=== PATIENT | female | born 1970 | race Caucasian/White ===

== ENCOUNTER 2016-12-08 00:21 | Emergency (ER) | payer SELFPAY ==
[~2016-12-08] VITALS: Ht 160 cm; Wt 86.2 kg
[2016-12-08 00:21] VITALS: BP 141/92
[~2016-12-08 00:21] MED LIST: ACET325T9 PO; MECL25TA3 PO; OLAN7.5T3 PO
[2016-12-08] MEDS ORDERED: HYDR-2758 PO (01:47)
[2016-12-08] MEDS ORDERED: CIPR10DR AS (01:47)
--- NOTE | 2016-12-08 01:48 | PHYS DOC ---
Past History Past Medical History: Depression, Diabetes, Migraines, Other Past Surgical History: Appendectomy, Cholecystectomy, , Hysterectomy, Other Smoking: Cigarettes Alcohol Use: None Drug Use: None Adult General Chief Complaint Chief Complaint: EARACHE/EAR PAIN [facility] HPI Patient is a pleasant 46-year-old female with a four-day history of ear pain on the right that began a few swelling. She describes as a dull ache this progressively got worse with no hearing loss she does have vertigo primarily from injury. Patient denies any fever, chills, drainage from the ear. She denies any sinusitis or sinus drainage denies any sore throat or other complaints. Pain is worse with direct pressure over the ear and pulling on the ear itself. She denies any bleeding from the ear or recent travel outside the country. She does not use any Q-tips. Check she thought her ear pain was secondary to cerumen impaction. Review of Systems Review of Systems Constitutional: Denies fever or chills [] Eyes: Denies change in visual acuity, redness, or eye pain [] HENT: Denies nasal congestion or sore throat [] her complaint is mainly right ear pain Respiratory: Denies cough or shortness of breath [] Cardiovascular: No additional information not addressed in HPI [] GI: Denies abdominal pain, nausea, vomiting, bloody stools or diarrhea [] : Denies dysuria or hematuria [] Musculoskeletal: Denies back pain or joint pain [] Integument: Denies rash or skin lesions [] Neurologic: Denies headache, focal weakness or sensory changes [] Endocrine: Denies polyuria or polydipsia [] Current Medications Current Medications Current Medications Medications (Trade) Dose Ordered Sig/Bebo Start Time Stop Time Status Last Admin Dose Admin Acetaminophen/ Hydrocodone Bitart (Lortab 5/325) 2 tab 1X ONCE 12/08/16 01:45 12/08/16 01:46 UNV Ciprofloxacin (Cipro) 500 mg 1X ONCE 12/08/16 01:45 12/08/16 01:46 UNV Allergies Allergies Allergies Coded Allergies Type Severity Reaction Last Updated Verified Erythromycin Base Allergy Intermediate 05/19/13 Yes promethazine Allergy Unknown Anxiety 01/15/14 Yes Physical Exam Physical Exam Constitutional: Well developed, well nourished, no acute distress, non-toxic appearance. [] HENT: Normocephalic, atraumatic, bilateral external ears normal, oropharynx moist, no oral exudates, nose normal. [] Patient has tenderness over the right tragus with some edema within the external ear canal. Patient has noted erythema with some debris not completely occluded. Persistent pain over pinna movement as well. Eyes: PERRLA, EOMI, conjunctiva normal, no discharge. [] Neck: Normal range of motion, no tenderness, supple, no stridor. [] Cardiovascular:Heart rate regular rhythm, no murmur [] Lungs & Thorax: Bilateral breath sounds clear to auscultation [] Skin: Warm, dry, no erythema, no rash. [] Neurologic: Alert and oriented X 3, normal motor function, normal sensory function, no focal deficits noted. [] Psychologic: Affect normal, judgement normal, mood normal. [] EKG EKG [] Radiology/Procedures Radiology/Procedures [] Course & Med Decision Making Course & Med Decision Making Pertinent Labs and Imaging studies reviewed. (See chart for details) patient presents with right ear pain on physical exam are consistent with otitis externa. Patient has no concomitant cellulitis or started is noted at this time. At this time patient will be given a course of antibiotics CiproHC otic with Lortab for pain control and ENT follow-up. Impression: Otitis externa right Discharge PCP follow-up tomorrow or Saturday put on Cipro HC otic and Lortab. [] Dragon Disclaimer Dragon Disclaimer This chart was dictated in whole or in part using Voice Recognition software in a busy, high-work load, and often noisy Emergency Department environment. It may contain unintended and wholly unrecognized errors or omissions. Departure Departure: Impression: Primary Impression: Otitis externa Disposition: HOME, SELF-CARE Condition: IMPROVED Referrals: PCP,NO (PCP) Patient Instructions: Otitis Externa Additional Instructions: This follow up PCP in 24 hours if symptoms continue. Please return for any fever greater 102.2 despite treatment or if you have increased symptoms facial swelling the occlusion of the ear or if you have questions or concerns. Scripts Hydrocodone Bit/Acetaminophen (HYDROCODONE-APAP 5-325 ) 1 Each Tablet 1 TAB PO PRN Q6HRS Y for PAIN for 5 Days, TAB 0 Refills Prov: MEREDITH WANG MD 7/8/17 Ciprofloxacin/Hydrocortisone (CIPRO HC OTIC SUSPENSION) 10 Ml Drops.susp 3 DROP BID, #10 ML Prov: MEREDITH WANG MD 12/08/16 MEREDITH WANG MD Dec 08, 2016 01:47
[2016-12-08] MEDS ORDERED: HYDROcodone/APAP 5/325MG 1 TAB TABLET PO ONE (02:00)
[2016-12-08] MEDS ORDERED: CIPROFLOXACIN HCL 500 MG TABLET PO ONE (02:00)
== END 2016-12-08 02:05 | disposition home or self-care (01) ==
LOC: ER 00:21
DX: H60.91 Unspecified otitis externa, right ear (principal); G43.909 Migraine, unspecified, not intractable, without status migrainosus; E11.9 Type 2 diabetes mellitus without complications; F17.210 Nicotine dependence, cigarettes, uncomplicated; Z88.1 Allergy status to other antibiotic agents; Z88.8 Allergy status to other drugs, medicaments and biological substances
CPT/HCPCS: 99283

== ENCOUNTER 2018-01-01 20:56 | Emergency (ER) | payer SELFPAY ==
[~2018-01-01] VITALS: Ht 160 cm; Wt 86.2 kg
[~2018-01-01 20:56] MED LIST changes: +CIPR10DR AS; +HYDR-2758 PO
[2018-01-01] MEDS ORDERED: HYDR-971 PO (22:14)
[2018-01-01] MEDS ORDERED: PENI500T PO (22:14)
--- NOTE | 2018-01-01 22:14 | PHYS DOC ---
Past History Past Medical History: Depression, Diabetes, Migraines, Other Past Surgical History: Appendectomy, Cholecystectomy, , Hysterectomy, Other Smoking: Cigarettes Alcohol Use: None Drug Use: None Adult General Chief Complaint Chief Complaint: DENTAL PROBLEM HPI HPI 47-year-old female patient with history of smoking states she had a large cavity in her left lower tooth for several months without any problem for the last 2 days she has had severe pain in her tooth and rated her pain 10 over 10. Patient denies shortness of breath, fever and chills, nausea and vomiting. Review of Systems Review of Systems Constitutional: Denies fever or chills [] Eyes: Denies change in visual acuity, redness, or eye pain [] HENT: Denies nasal congestion or sore throat [, reports dental pain] Respiratory: Denies cough or shortness of breath [] Cardiovascular: No additional information not addressed in HPI [] GI: Denies abdominal pain, nausea, vomiting, bloody stools or diarrhea [] : Denies dysuria or hematuria [] Musculoskeletal: Denies back pain or joint pain [] Integument: Denies rash or skin lesions [] Neurologic: Denies headache, focal weakness or sensory changes [] Endocrine: Denies polyuria or polydipsia [] All other systems were reviewed and found to be within normal limits, except as documented in this note. Current Medications Current Medications Current Medications Medications (Trade) Dose Ordered Sig/Bebo Start Time Stop Time Status Last Admin Dose Admin Penicillin V Potassium (Veetid) 1,000 mg 1X ONCE 01/01/18 22:15 01/01/18 22:16 UNV Allergies Allergies Allergies Coded Allergies Type Severity Reaction Last Updated Verified Erythromycin Base Allergy Intermediate 05/19/13 Yes promethazine Allergy Unknown Anxiety 01/15/14 Yes Physical Exam Physical Exam Constitutional: Well developed, well nourished, moderate distress, non-toxic appearance. [] HENT: Normocephalic, atraumatic, bilateral external ears normal, oropharynx moist, no oral exudates, nose normal, large dental cavity in tooth #31 with dental abscess and tenderness. [] Eyes: PERRLA, EOMI, conjunctiva normal, no discharge. [] Neck: Normal range of motion, no tenderness, supple, no stridor. [] Cardiovascular:Heart rate regular rhythm, no murmur [] Lungs & Thorax: Bilateral breath sounds clear to auscultation [] Skin: Warm, dry, no erythema, no rash. [] Extremities: No tenderness, no cyanosis, no clubbing, ROM intact, no edema. [] Neurologic: Alert and oriented X 3, normal motor function, normal sensory function, no focal deficits noted. [] Psychologic: Affect anxious, judgement normal, mood normal. [] EKG EKG [] Radiology/Procedures Radiology/Procedures [] Course & Med Decision Making Course & Med Decision Making Evaluation of patient in ER showed 47-year-old female patient with complaining of dental pain for 2 days. Patient had a large cavity in tooth #31 with dental abscess. Patient wanted to talk dental block and after dental block with Marcaine 0.75% felt better and rated her pain as mild. Pen-Vee K was started in ER and patient instructed to quit smoking and follow up with her dentist. Dragon Disclaimer Dragon Disclaimer This electronic medical record was generated, in whole or in part, using a voice recognition dictation system. Departure Departure: Impression: Primary Impression: Dental abscess Additional Impressions: Tobacco abuse Tobacco abuse counseling Disposition: HOME, SELF-CARE (At 2211) Condition: IMPROVED Referrals: PCP,LUPIS (PCP) Patient Instructions: Dental Abscess, Smoking Cessation, Smoking Cessation, Tips For Success Additional Instructions: Drink plenty of liquids Follow-up with your primary care physician in 3-5 days Return to ER if not getting better Quit smoking Follow-up with a dentist in 5-7 days Scripts Penicillin V Potassium (PENICILLIN V POTASSIUM) 500 Mg Tablet 2 TAB PO BID, #28 TAB Prov: CHRIS MUNIZ MD 01/01/18 Hydrocodone Bit/Acetaminophen (NORCO 5-325 TABLET) 1 Each Tablet 1 TAB PO PRN Q6HRS PRN for PAIN, #14 TAB 0 Refills Prov: CHRIS MUNIZ MD 01/01/18 Problem Qualifiers CHRIS MUNIZ MD Jan 01, 2018 22:14
[2018-01-01] MEDS ORDERED: PENICILLIN V K 250 MG TABLET. PO ONE (22:15)
[2018-01-01 22:45] VITALS: BP 146/86
== END 2018-01-01 22:45 | disposition home or self-care (01) ==
LOC: ER 20:56
DX: K04.7 Periapical abscess without sinus (principal); F32.9 Major depressive disorder, single episode, unspecified; E11.9 Type 2 diabetes mellitus without complications; G43.909 Migraine, unspecified, not intractable, without status migrainosus; Z72.0 Tobacco use; Z71.6 Tobacco abuse counseling; Z88.1 Allergy status to other antibiotic agents; Z88.8 Allergy status to other drugs, medicaments and biological substances
CPT/HCPCS: 64400; 99284

== ENCOUNTER 2018-06-28 14:47 | Emergency (ER) | payer OTHER ==
[~2018-06-28] VITALS: Ht 160 cm; Wt 85.7 kg
[~2018-06-28 14:47] MED LIST changes: +HYDR-2155 PO; -HYDR-2758 PO; +HYDR-3165 PO; +PENI500T PO
[2018-06-28 15:01] VITALS: BP 165/82
[2018-06-28] MEDS ORDERED: MORPHINE SULFATE 10 MG/ML SYRINGE. IM ONE (16:00)
[2018-06-28] MEDS ORDERED: ONDANSETRON ODT 4 MG TAB.RAPDIS PO ONE (16:00)
--- NOTE | 2018-06-28 16:15 | ED.ADGEN ---
Past History Past Medical History: Depression, Diabetes, Migraines, Other Past Surgical History: Appendectomy, Cholecystectomy, , Hysterectomy, Other Smoking: Cigarettes Alcohol Use: None Drug Use: None Adult General Chief Complaint Chief Complaint Right shoulder pain HPI HPI Patient is a 48-year-old right-handed female with history of prior shoulder injury presents with right shoulder pain which reproduces with movement and range of motion after lifting heavy boxes 2 days ago. Pain is described as sharp , aching radiates from shoulder blade to around anterior shoulder and reproduces with palpation range of motion. No motor weakness or loss of sensation. No other acute symptoms or complaints. [] Review of Systems Review of Systems Review symptoms as per history of present illness. All other review symptoms are negative. All other systems were reviewed and found to be within normal limits, except as documented in this note. Current Medications Current Medications Current Medications Medications (Trade) Dose Ordered Sig/Bebo Start Time Stop Time Status Last Admin Dose Admin Morphine Sulfate (Morphine 10mg Syringe) 10 mg 1X ONCE 06/28/18 16:00 06/28/18 16:01 DC 06/28/18 15:59 10 MG Ondansetron HCl (Zofran Odt) 4 mg 1X ONCE 06/28/18 16:00 06/28/18 16:01 DC 06/28/18 15:59 4 MG Allergies Allergies Allergies Coded Allergies Type Severity Reaction Last Updated Verified Erythromycin Base Allergy Intermediate 05/19/13 Yes promethazine Allergy Unknown Anxiety 01/15/14 Yes Physical Exam Physical Exam Constitutional: Well developed, well nourished, no acute distress, non-toxic appearance. [] HENT: Normocephalic, atraumatic, bilateral external ears normal, oropharynx moist, no oral exudates, nose normal. [] Eyes: PERRLA, EOMI, conjunctiva normal, no discharge. [] Neck: Normal range of motion, no tenderness, supple, no stridor. [] Cardiovascular:Heart rate regular rhythm, no murmur [] Lungs & Thorax: Bilateral breath sounds clear to auscultation [] Extremities: Right shoulder, no swelling, bruising or deformity. An range of motion. Tenderness over right upper thorax/ paravertebral region[ reproducing with range of motion] Back: No midline spinal tenderness.. [] Neurologic [] Current Patient Data Vital Signs Vital Signs Date Time Temp Pulse Resp B/P (MAP) Pulse Ox O2 Delivery O2 Flow Rate FiO2 06/28/18 15:01 Room Air 06/28/18 15:01 98.1 83 20 96 EKG EKG [] Radiology/Procedures Radiology/Procedures [] Course & Med Decision Making Course & Med Decision Making Pertinent Labs and Imaging studies reviewed. (See chart for details) [Reproducible back pain] Final Impression Final Impression 1, Right shoulder pain] Dragon Disclaimer Dragon Disclaimer This electronic medical record was generated, in whole or in part, using a voice recognition dictation system. ARMANDO CABALLERO DO Jun 28, 2018 16:15
[2018-06-28] MEDS ORDERED: CYCL-331 PO (16:18)
[2018-06-28] MEDS ORDERED: HYDR-3165 PO (16:18)
== END 2018-06-28 16:34 | disposition home or self-care (01) ==
LOC: ER 14:47
DX: M25.511 Pain in right shoulder (principal); F32.9 Major depressive disorder, single episode, unspecified; E11.9 Type 2 diabetes mellitus without complications; G43.909 Migraine, unspecified, not intractable, without status migrainosus; F17.210 Nicotine dependence, cigarettes, uncomplicated; Z88.1 Allergy status to other antibiotic agents; Z88.8 Allergy status to other drugs, medicaments and biological substances; X50.9XXA Other and unspecified overexertion or strenuous movements or postures, initial encounter; Y93.89 Activity, other specified; Y92.89 Other specified places as the place of occurrence of the external cause; Y99.8 Other external cause status
CPT/HCPCS: 96372; 99283; J2270; Q0162

== ENCOUNTER 2020-11-26 19:35 | Emergency (ER) | payer SELFPAY ==
[~2020-11-26] VITALS: Ht 160 cm; Wt 76.5 kg
[~2020-11-26 19:35] MED LIST changes: +CYCL-331 PO; +MECL-75 PO; -MECL25TA3 PO
[2020-11-26] MEDS ORDERED: HYDROcodone/APAP 5/325MG 1 TAB TABLET PO ONE (20:00)
--- NOTE | 2020-11-26 20:58 | PHYS DOC ---
Past History Past Medical History: Depression, Diabetes, HI, Migraines, Other Past Surgical History: Appendectomy, Cholecystectomy, , Hysterectomy Smoking: Cigarettes Alcohol Use: None Drug Use: None General Adult EDM: Chief Complaint: BACK INJURY HPI: HPI: Patient is a 50-year-old female who presents with left shoulder pain after lifting up a bag of dog food. Patient states that she had a rotator cuff tear a few years ago and reports that the pain she is experiencing now feels the same. Patient states "it has been hurting for the last couple of weeks but I figured it would improve so I waited to come in and be seen". Patient states that nothing improves or makes pain worse. Patient reports the pain is constant. Patient's been taking ibuprofen at home with little relief. Review of Systems: Review of Systems: Constitutional: Denies fever or chills Eyes: Denies change in visual acuity HENT: Denies nasal congestion or sore throat Respiratory: Denies cough or shortness of breath Cardiovascular: Denies chest pain or edema GI: Denies abdominal pain, nausea, vomiting, bloody stools or diarrhea : Denies dysuria Musculoskeletal: Reports left shoulder pain Integument: Denies rash Neurologic: Denies headache, focal weakness or sensory changes Endocrine: Denies polyuria or polydipsia Lymphatic: Denies swollen glands Psychiatric: Denies depression or anxiety Current Medications: Current Meds: Current Medications Medications (Trade) Dose Ordered Sig/Bebo Start Time Stop Time Status Last Admin Dose Admin Acetaminophen/ Hydrocodone Bitart (Lortab 5/325) 1 tab 1X ONCE 11/26/20 20:00 11/26/20 20:02 DC 11/26/20 20:00 1 TAB Allergies: Allergies: Allergies Coded Allergies Type Severity Reaction Last Updated Verified erythromycin base Allergy Intermediate 05/19/13 Yes promethazine Allergy Unknown Anxiety 01/15/14 Yes Physical Exam: PE: Constitutional: Well developed, well nourished, no acute distress, non-toxic appearance. [] HENT: Normocephalic, atraumatic, bilateral external ears normal, oropharynx moist, no oral exudates, nose normal. [] Eyes: PERRLA, EOMI, conjunctiva normal, no discharge. [] Neck: Normal range of motion, no tenderness, supple, no stridor. [] Cardiovascular:Heart rate regular rhythm, no murmur [] Lungs & Thorax: Bilateral breath sounds clear to auscultation [] Abdomen: Bowel sounds normal, soft, no tenderness, no masses, no pulsatile masses. [] Skin: Warm, dry, no erythema, no rash. [] Back: No tenderness, no CVA tenderness. [] Extremities: Left shoulder pain. Range of motion intact but produces pain. Neurologic: Alert and oriented X 3, normal motor function, normal sensory function, no focal deficits noted. [] Psychologic: Affect normal, judgement normal, mood normal. [] Current Patient Data: Vital Signs: Vital Signs Date Time Temp Pulse Resp B/P (MAP) Pulse Ox O2 Delivery O2 Flow Rate FiO2 11/26/20 20:00 20 Room Air 11/26/20 19:50 98.1 96 162/92 (115) 96 EKG: EKG: [] Radiology/Procedures: Radiology/Procedures: [] Heart Score: C/O Chest Pain: No Risk Factors: Risk Factors: DM, Current or recent (<one month) smoker, HTN, HLP, family history of CAD, obesity. Risk Scores: Score 0 - 3: 2.5% MACE over next 6 weeks - Discharge Home Score 4 - 6: 20.3% MACE over next 6 weeks - Admit for Clinical Observation Score 7 - 10: 72.7% MACE over next 6 weeks - Early Invasive Strategies Course & Med Decision Making: Course & Med Decision Making Pertinent Labs and Imaging studies reviewed. (See chart for details) [] 50-year-old male presents with left shoulder pain after lifting up a bag of dog food. Patient believes she really injured her shoulder from an injury a few years ago. Patient reports pain is a burning sensation that is constant. Patient given 5/325 hydrocodone. Patient states the pain has not improved. Patient given second dose of hydrocodone. Shoulder x-ray is negative. Explained to patient that she will need to follow- up with PCP for further imaging. Patient to take ibuprofen and Tylenol at home for discomfort. Rice instructions given. Patient sent home with a prescription for hydrocodone until she can follow-up with PCP this week. Patient is requesting a list of PCPs to follow-up with. Patient states that she does not have a PCP at this time due to changing her insurance. Patient is okay with discharge plan and appreciative patient's hemodynamically stable and able to ambulate on her own. Ofelia Disclaimer: Ofelia Disclaimer: This electronic medical record was generated, in whole or in part, using a voice recognition dictation system. Departure Departure: Impression: Primary Impression: Shoulder pain Qualified Codes: M25.512 - Pain in left shoulder Disposition: HOME / SELF CARE / HOMELESS Condition: STABLE Referrals: PCP,NO (PCP) Patient Instructions: Shoulder Pain, [id number] Additional Instructions: You were seen in the emergency room for left shoulder pain. X-ray of your shoulder was negative. You will need to follow-up with PCP on Saturday to be referred for further imaging. Take ibuprofen and Tylenol at home for discomfort. Sending you home with a prescription for hydrocodone for help with pain. Try and rest, use ice. Return to the emergency room if you have worsening symptoms or concerns. EMERGENCY DEPARTMENT GENERAL DISCHARGE INSTRUCTIONS Thank you for coming to [facility] (ED) today and trusting us with you care. We trust that you had a positivie experience in our Emergency Department. If you wish to speak to the department management, you may call the director at [phone]. YOUR FOLLOW UP INSTRUCTIONS ARE FOLLOWS: 1. Do you have a private Doctor? If you do not have a private doctor, please ask for a resource list of physicians or clinics that may be able to assist you with follow up care. 2. The Emergency Physician has interpreted your x-rays. The X-Ray specialist will also review them. If there is a change in the findings, you will be notified in 48 hours when at all possible. 3. A lab test or culture has been done, your results will be reviewed and you will be notified if you need a change in treatment. ADDITIONAL INSTRUCTIONS AND INFORMATION: 1. Your care today has been supervised by a physician who is specially trained in emergency care. Many problems require more than one evaluation for a complete diagnosis and treatment. We recommend that you schedule your follow up appointment as recommended to ensure complete treatment of you illness or injury. If you are unable to obtain follow up care and continue to have a problem, or if your condition worsens, we recommend that you return to the ED. 2. We are not able to safely determine your condition over the phone nor are we able to give sound medical advice over the phone. For these safety reasons, if you call for medical advice we will ask you to come to the ED for further evaluation. 3. If you have any questions regarding these discharge instructions please call the ED at [phone]. SAFETY INFORMATION: In the interest of safety, wellness, and injury prevention; we encourage you to wear your sealbelt, if you smoke; quite smoking, and we encourage family to use a protective helmet for bicycling and other sporting events that present an increased risk for head injury. IF YOUR SYMPTOMS WORSEN OR NEW SYMPTOMS DEVELOP, OR YOU HAVE CONCERNS ABOUT YOUR CONDITION; OR IF YOUR CONDITION WORSENS WHILE YOU ARE WAITING FOR YOUR FOLLOW UP APPOINTMENT; EITHER CONTACT YOUR PRIMARY CARE DOCTOR, THE PHYSICIAN WHOSE NAME AND NUMBER YOU WERE GIVEN, OR RETURN TO THE ED IMMEDIATELY. Scripts Hydrocodone Bit/Acetaminophen (HYDROCODONE-APAP 5-325 ) 1 Each Tablet 1 TAB PO PRN Q6HRS PRN for PAIN for 3 Days, #12 TAB 0 Refills Prov: JUDY MEDINA APRN 11/26/20 JUDY MEDINA APRN Nov 26, 2020 20:58
--- NOTE | 2020-11-26 21:16 | RAD ---
XR SHOULDER_RIGHT 2+ VIEWS dated 11/26/2020 8:26 PM. History: Reason: PAIN AFTER LIFTING DOG FOOD, SCAPULA PAIN SPASMS / Spl. Instructions: / History: Comparison: None. Findings: There is no fracture or dislocation. The bone density is normal. No abnormal periosteal reaction is s een. Joint spaces are maintained. Impression: 1. No acute bony abnormality evident. Electronically signed by: Elan Paez Jr., MD (11/26/2020 9:14 PM) [facility]
[2020-11-26] MEDS ORDERED: HYDR-2155 PO (21:36)
[2020-11-26 21:50] VITALS: BP 167/104
[2020-11-26] MEDS ORDERED: CYCLOBENZAPRINE 10 MG TABLET. PO ONE (22:00)
== END 2020-11-26 21:50 | disposition home or self-care (01) ==
LOC: ER 19:35
DX: M25.512 Pain in left shoulder (principal); E11.9 Type 2 diabetes mellitus without complications; I25.2 Old myocardial infarction; F17.210 Nicotine dependence, cigarettes, uncomplicated; Z90.49 Acquired absence of other specified parts of digestive tract; Z90.710 Acquired absence of both cervix and uterus; Z88.1 Allergy status to other antibiotic agents
CPT/HCPCS: 73030; 99283-25

== ENCOUNTER 2021-04-16 20:38 | Emergency (ER) | payer SELFPAY ==
[~2021-04-16] VITALS: Ht 154.9 cm; Wt 78.2 kg
[~2021-04-16 20:38] MED LIST changes: -CYCL-331 PO; +CYCL10TA19 PO
[2021-04-16] MEDS ORDERED: CYCL10TA19 PO (20:53)
--- NOTE | 2021-04-16 20:54 | PHYS DOC ---
Past History Past Medical History: Depression, Diabetes, MS, Migraines, Other Past Surgical History: Appendectomy, Cholecystectomy, , Hysterectomy Smoking: Cigarettes Alcohol Use: None Drug Use: None Adult General HPI HPI Patient is a 51-year-old female with a past medical history significant for MS, diabetes, anxiety and depression who presents with back pain for 2 months. States she does not know why she is having back pain that she has had no traumas and does not really lift anything. States that about 2 to 2-1/2 months ago she started having some pain in her lower left back, 7 out of 10 at its worst, dull and achy in nature with no radiation. Denies any headache, chest pain, shortness of breath, abdominal pain, nausea, vomiting, dysuria, hematuria, blood in the stool or diarrhea. Denies any numbness/weakness/tingling. Denies any trouble sitting, standing or walking. States she had not seen a doctor over the last couple of months because she has no insurance. States has been taken Tylenol at home with minimal relief. Review of Systems Review of Systems Review of systems otherwise unremarkable except noted in HPI Allergies Allergies Allergies Coded Allergies Type Severity Reaction Last Updated Verified erythromycin base Allergy Intermediate 05/19/13 Yes promethazine Allergy Unknown Anxiety 01/15/14 Yes Physical Exam Physical Exam Constitutional: Well developed, well nourished, no acute distress, non-toxic appearance. [] HENT: Normocephalic, atraumatic, bilateral external ears normal, oropharynx moist, no oral exudates, nose normal. [] Eyes: conjunctiva normal, no discharge. [] Neck: Normal range of motion, no tenderness, supple, no stridor. [] Cardiovascular:Heart rate regular rhythm, no murmur [] Lungs & Thorax: Bilateral breath sounds clear to auscultation [] Abdomen: Bowel sounds normal, soft, no tenderness, no masses, no pulsatile masses. [] Skin: Warm, dry, no erythema, no rash. [] Back: No tenderness, no CVA tenderness. [] Extremities: No midline tenderness, no obvious deformities, step-offs or bruising, no cyanosis, no clubbing, ROM intact, no edema, neurovascular exam intact. [] Neurologic: Alert and oriented X 3, able to sit, stand and walk without issue, motor normal, sensation normal, no focal deficits noted. [] Psychologic: Affect normal, judgement normal, mood normal. [] EKG EKG [] Radiology/Procedures Radiology/Procedures [] Heart Score C/O Chest Pain: No Risk Factors: Risk Factors: DM, Current or recent (<one month) smoker, HTN, HLP, family history of CAD, obesity. Risk Scores: Risk Factors: DM, Current or recent (<one month) smoker, HTN, HLP, family history of CAD, obesity. Course & Med Decision Making Course & Med Decision Making Patient is a 51-year-old female presents with back pain Vital signs . Physical exam noted above. Patient given pain medicine. Given muscle relaxer. Discussed symptom management at home. Discussed some exercises to do at home for relief and to prevent further injury. Advised to follow-up in the morning with primary care physician to update on ED visit and set up a follow-up appointment as soon as possible and have discussions about continued evaluation and treatment, as well as imaging such as MRI Gastric return precautions to the ED. Patient grateful, verbalized understanding and agree with plan of discharge. [] Dragon Disclaimer Dragon Disclaimer This electronic medical record was generated, in whole or in part, using a voice recognition dictation system. Departure Departure: Impression: Primary Impression: Back pain Disposition: HOME / SELF CARE / HOMELESS Condition: GOOD Referrals: [facility] (PCP) AJAY MAYEN Patient Instructions: Back Pain, Adult Additional Instructions: Thank you for coming into the emergency department tonight and allowing us to take care of you. Please read the attached information carefully go back over some of the things we discussed. Please begin a Tylenol, ibuprofen, Benadryl and ice regimen as we discussed. You can take 1000 mg of Tylenol 3 times a day as well as 600 mg of ibuprofen 4 times a day. You can add Benadryl to these regimens but be aware this could make you sleepy. Please practice some stretching exercises as we discussed. Please follow-up in the morning with your primary care physician to discuss your ED visit and set up a follow-up appointment to discuss need for further evaluation and treatment including MRI. You are given contact information for local free clinics as well. Please come back to the ED with new or concerning symptoms as discussed. Scripts Cyclobenzaprine Hcl (CYCLOBENZAPRINE HCL) 10 Mg Tablet 1 TAB PO BID PRN for MUSCLE SPASMS for 7 Days, #14 TAB Prov: EDUARDO RICK MD 04/16/21 EDUARDO RICK MD Apr 16, 2021 20:54
[2021-04-16] MEDS ORDERED: diazePAM 5 MG TABLET. PO ONE (21:00)
[2021-04-16] MEDS ORDERED: oxyCODONE/APAP 5/325 1 TAB TABLET PO ONE (21:00)
[2021-04-16] MEDS ORDERED: IBUPROFEN 800 MG TABLET. PO ONE (21:00)
[2021-04-16 21:29] VITALS: BP 180/93
== END 2021-04-16 21:32 | disposition home or self-care (01) ==
LOC: ER 20:38
DX: M54.59 Other low back pain (principal); E11.9 Type 2 diabetes mellitus without complications; G43.909 Migraine, unspecified, not intractable, without status migrainosus; I25.2 Old myocardial infarction; F17.210 Nicotine dependence, cigarettes, uncomplicated; Z90.49 Acquired absence of other specified parts of digestive tract; Z90.89 Acquired absence of other organs; Z98.890 Other specified postprocedural states; Z90.710 Acquired absence of both cervix and uterus; Z88.1 Allergy status to other antibiotic agents; Z88.8 Allergy status to other drugs, medicaments and biological substances
CPT/HCPCS: 99284